=== PATIENT | male | born 1975 | race Caucasian/White ===

== ENCOUNTER 2017-02-03 14:44 | Emergency (ER) | payer SELFPAY ==
[2017-02-03 21:00] VITALS: BP 133/83
== END 2017-02-03 21:00 | disposition short-term general hospital (02) ==
LOC: ED 14:44
DX: S61.216A Laceration without foreign body of right little finger without damage to nail, initial encounter (principal); X58.XXXA Exposure to other specified factors, initial encounter; Y93.89 Activity, other specified; Y99.8 Other external cause status; Y92.89 Other specified places as the place of occurrence of the external cause
CPT/HCPCS: 90715; A4570; J2001; J3010; Q0092